=== PATIENT | female | born 1955 | race Caucasian/White ===

== ENCOUNTER 2017-04-06 11:04 | Emergency (ER) | payer MEDICAID ==
[2017-04-06 11:04] VITALS: BMI 24.1
[2017-04-06 11:16] VITALS: RESP 17; TEMP 98
--- NOTE | 2017-04-06 11:27 | ED PDOC ---
Arrival/HPI - General Chief Complaint: Lower Extremity Problem/Injury Time Seen by Provider: 04/06/17 11:18 Historian: Patient, Family (daughter translates) - History of Present Illness Time/Duration: Other (5 days) Symptom Onset: Sudden Symptom Course: Worsening Quality: Aching Severity Level: Severe Associated Symptoms (Text): 04/06/17 11:24 Daughter translates. 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 The client slipped and fell in the bathroom and my patient caught her client injuring her left lower back. The pain now radiates into her left posterior thigh to the level of her knee and also into her hip. There is no abdominal pain nausea vomiting or diarrhea. No genitourinary symptoms. No weakness. No numbness tingling or paresthesias. No direct blow. Past Medical History - Infectious Disease Hx of Infectious Diseases: None - Tetanus Immunization Tetanus Immunization: Up to Date - Cardiac Hx Cardiac Disorders: No - Pulmonary Hx Respiratory Disorders: No - Neurological Hx Neurological Disorder: No - HEENT Hx HEENT Disorder: No - Renal Hx Renal Disorder: No - Endocrine/Metabolic Hx Diabetes Mellitus Type 2: Yes - Hematological/Oncological Hx Blood Disorders: No - Integumentary Hx Dermatological Disorder: No - Musculoskeletal/Rheumatological Hx Musculoskeletal Disorders: No - Gastrointestinal Hx Gastrointestinal Disorders: No - Genitourinary/Gynecological Hx Genitourinary Disorders: No - Psychiatric Hx Depression: No Hx Emotional Abuse: No Hx Physical Abuse: No Hx Substance Use: No - Past Surgical History Past Surgical History: Unable to Obtain - Surgical History Hx Hysterectomy: Yes - Anesthesia Hx Anesthesia: Yes Hx Anesthesia Reactions: No Hx Malignant Hyperthermia: No - Suicidal Assessment Feels Threatened In Home Enviroment: No Family/Social History - Physician Review Nursing Documentation Reviewed: Yes Family/Social History: Unknown Family HX Smoking Status: Never Smoked Hx Alcohol Use: No Hx Substance Use: No Hx Substance Use Treatment: No Allergies/Home Meds Allergies/Adverse Reactions: Allergies No Known Allergies Allergy (Verified 12/15/12 19:09) Home Medications: Home Meds Medication Instructions Recorded Confirmed Aspirin [Adult Low Dose Aspirin EC] 81 mg PO DAILY 04/06/17 04/06/17 Calcium Carbonate/Vitamin D3 1 each PO BID 04/06/17 04/06/17 [Oyster Shell Calcium-Vit D Tab] Empagliflozin [Jardiance] 25 mg PO QAM 04/06/17 04/06/17 Insulin Glargine,Hum.rec.anlog 13 unit SQ DAILY 04/06/17 04/06/17 [Lantus] Metformin HCl [Glucophage] 1,000 mg PO BID 04/06/17 04/06/17 Omeprazole 20 mg PO DAILY 04/06/17 04/06/17 Pravastatin Sodium [Pravachol] 20 mg PO DAILY 04/06/17 04/06/17 Review of Systems - Physician Review All systems were reviewed & negative as marked: Yes - Review of Systems Constitutional: Normal Respiratory: Normal Cardiovascular: Normal Gastrointestinal: Normal Genitourinary Female: Normal Musculoskeletal: Back Pain. absent: Neck Pain Neurological: Normal. absent: Headache, Dizziness, Focal Weakness, Gait Changes Physical Exam Vital Signs Temp Pulse Resp BP Pulse Ox 04/06/17 11:10 98.0 F 91 H 17 119/75 98 Temperature: Afebrile Blood Pressure: Normal Pulse: Regular Respiratory Rate: Normal Appearance: Positive for: Well-Appearing, Non-Toxic, Uncomfortable Pain Distress: Moderate Mental Status: Positive for: other (awake alert and cooperative) - Systems Exam Head: Present: Atraumatic, Normocephalic Neck: Present: Normal Range of Motion. No: MIDLINE TENDERNESS, Paraspinal Tenderness Respiratory/Chest: Present: Clear to Auscultation, Good Air Exchange. No: Respiratory Distress, Accessory Muscle Use Cardiovascular: Present: Regular Rate and Rhythm, Normal S1, S2. No: Murmurs Abdomen: Present: Normal Bowel Sounds. No: Tenderness, Distention, Peritoneal Signs, Rebound, Guarding Back: Present: Normal Inspection, Paraspinal Tenderness (left paraspinous tenderness. No spasm. Negative straight leg. No scoliosis. no sciatic notch tenderness). No: CVA Tenderness, Midline Tenderness Lower Extremity: Present: Normal Inspection, NORMAL PULSES, Normal ROM, Neurovascularly Intact. No: Edema, CALF TENDERNESS, Keyur's Sign, Tenderness, Swelling, Erythema, Deformity Neurological: Present: GCS=15, CN II-XII Intact, Speech Normal, Motor Func Grossly Intact, Gait Normal Medical Decision Making ED Course and Treatment: 04/06/17 12:56 Pain is improved. Patient will be discharged home accompanied by to follow up with PMD. Follow-up in the ER as needed. Rest and moist heat. Prescription for Naprosyn and Flexeril and Ultram. A note for work is given. - RAD Interpretation Radiology Orders: 04/06/17 11:23 LS SPINE WITH OBL > 18 YRS OLD [RAD] Stat LS spine shows DJD with no fracture or dislocation Bobtail Driver: ED Physician - Medication Orders Current Medication Orders: Cyclobenzaprine HCl (Flexeril) 10 mg PO ONCE DON Last Admin: 04/06/17 11:35 Dose: 10 mg Discontinued Medications Ketorolac Tromethamine (Toradol) 60 mg IM ONCE ONE Stop: 04/06/17 11:23 Last Admin: 04/06/17 11:35 Dose: 60 mg MAR Pain Assessment Document 04/06/17 11:35 (Rec: 04/06/17 11:35 [id number]) Pain Reassessment Is this a pain reassessment? Yes Sleep Is patient sleeping during reassessment? No Presence of Pain Presence of Pain Yes IM Administration Charges Document 04/06/17 11:35 (Rec: 04/06/17 11:35 [id number]) Charges for Administration # of IM Administrations 1 Disposition/Present on Arrival - Present on Arrival Any Indicators Present on Arrival: No History of DVT/PE: No History of Uncontrolled Diabetes: No Urinary Catheter: No History of Decub. Ulcer: No History Surgical Site Infection Following: None - Disposition Have Diagnosis and Disposition been Completed?: Yes Diagnosis: Lumbar spine strain Disposition: HOME/ ROUTINE Disposition Time: 12:57 Patient Plan: Discharge Patient Problems: Current Active Problems Problem Status Onset Lumbar spine strain Acute Condition: IMPROVED Discharge Instructions (ExitCare): Acute Low Back Pain (ED) Additional Instructions: Rest and moist heat. Follow-up with PMD. Follow-up in the ER as needed. Prescriptions: Cyclobenzaprine [Cyclobenzaprine HCl] 5 mg PO Q8 #14 tab Naproxen [Naprosyn] 500 mg PO BID #14 tab Tramadol HCl [Ultram] 50 mg PO Q6 PRN #14 tab PRN Reason: Pain Referrals: Carolin Segura DO [Primary Care Provider] - Follow up with primary Forms: [facility] (Thai), WORK NOTE
--- NOTE | 2017-04-06 12:30 | RAD ---
PROCEDURE: Radiographs of the Lumbar Spine. HISTORY: trauma COMPARISON: No prior. FINDINGS: BONES: Normal alignment. No listhesis. No fracture. DISC SPACES: Disc degenerative changes L2-3. Proliferative hypertrophic changes at this level. OTHER FINDINGS: None. IMPRESSION: No acute findings related to/accounting for the clinical presentation. Please note: No preliminary report/ innterpretation of this examination provided by emergency department personnel.
[2017-04-06 13:18] VITALS: BP 111/67; PULSE 84; O2SAT 99
== END 2017-04-06 13:17 | disposition home or self-care (01) ==
LOC: ED 11:04
DX: S39.012A Strain of muscle, fascia and tendon of lower back, initial encounter (principal); X50.0XXA Overexertion from strenuous movement or load, initial encounter; Y93.F9 Activity, other caregiving; Y92.89 Other specified places as the place of occurrence of the external cause
CPT/HCPCS: 72110; 96372; 99283; J1885